=== PATIENT | female | born 1955 | race Caucasian/White ===

== ENCOUNTER 2016-06-28 18:38 | Emergency (ER) | payer OTHER ==
[2016-06-28 18:57] VITALS: BP 193/105
[2016-06-28 19:20] LABS: Hematocrit 28.3 % (37.0-47.0); Hemoglobin 9.5 gm/dL (12.5-16.0); Mean Corpuscular Hemoglobin 29.9 pg (27-31); Mean Corpuscular Hgb Conc 33.6 g/dl (32-36); Mean Platelet Volume 8.2 fl (6.0-9.5); Neutrophil # 6.3 K/mm3 (1.3-6.0); Neutrophil % 73.8 % (42-75.0); Platelet Count 116 K/mm3 (150-450); Red Blood Count 3.18 M/mm3 (4.2-5.4); Red Cell Distribution Width 16.2 % (11.5-14.0); White Blood Count 8.5 K/mm3 (4.0-10.5)
[2016-06-28 19:34] LABS: Albumin * 2.8 gm/dl (3.4-5.0); Anion Gap 11.6 mmol/L (6.8-13.8); BUN/Creatinine Ratio 22.8 (9.0-21.6); Bilirubin, Total 0.3 mg/dL (0.0-1.1); Calcium * 9.4 mg/dL (7.9-10.9); Carbon Dioxide 28.5 mmol/L (24-32.6); Potassium 4.1 mmol/L (3.4-4.6); Total Protein 7.2 gm/dL (6.2-8.2)
--- NOTE | 2016-06-28 19:35 | ERNOTE ---
Medical Problem HPI - General Chief Complaint: General Assessment Time Seen by Provider: 06/28/16 19:34 Source: patient, family Exam Limitations: no limitations - Immun/Allergies/Home Medications Immunizations: IMMUNIZATION HX Immunizations Up to Date Yes History of Influenza Vaccine No Hx Pneumococcal Vaccination No Allergies/Adverse Reactions: Allergies No Known Allergies Allergy (Verified 06/28/16 18:56) Home Medications: HOME MEDICATIONS Hydrochlorothiazide [Hydrodiuril] 25 mg PO DAILY 10/12/14 [Last Taken Unknown] Ferrous Sulfate [Iron] 325 mg PO BID 12/30/14 [Last Taken Unknown] Sennosides [Natural Vegetable Laxative] 17.2 mg PO BID 12/30/14 [Last Taken Unknown] Insulin Glargine,Hum.rec.anlog [Lantus] 20 units SC DAILY 02/27/15 [Last Taken Unknown] oxyCODONE HCL [Oxycodone] 5 mg PO PRN PRN 05/06/15 [Last Taken Unknown] Docusate Sodium [Colace] 100 mg PO DAILY 05/11/15 [Last Taken Unknown] Gabapentin [Neurontin] 300 mg PO TID 05/11/15 [Last Taken Unknown] Ondansetron HCl [Zofran] 8 mg PO TID PRN 05/11/15 [Last Taken Unknown] Prochlorperazine Maleate [Compazine] 10 mg PO QID PRN 05/11/15 [Last Taken Unknown] Insulin Lispro [Humalog] 25 unit SQ HS 10/28/15 [Last Taken Unknown] Lisinopril [Zestril] 20 mg PO DAILY 10/28/15 [Last Taken Unknown] - History of Present History Narrative: Feeling tired after 3rd of 6 sessions of chemo Timing: getting worse Severity: moderate Modifying Factors - (Improves): Present: rest Review of Systems - Review of Systems Constitutional: Present: See HPI, weakness, fatigue. Absent: fever, chills, diaphoresis EYE: Present: no symptoms reported ENT: Present: no symptoms reported Respiratory: Present: no symptoms reported Cardiology: Present: no symptoms reported Gastrointestinal/Abdominal: Present: no symptoms reported Genitourinary: Present: no symptoms reported Musculoskeletal: Present: no symptoms reported Skin: Present: no symptoms reported Neurological: Present: no symptoms reported Endocrine: Present: no symptoms reported Hematologic/Lymphatic: Present: no symptoms reported Psych: Present: no symptoms reported - Patient's Past Medical History Patient History - Medical: Diabetes Type 2 Patient History - Cardiac/Respiratory: Hypertension Patient History - Cancer: Endometrial, Chemotherapy history Patient History - Surgical Procedures: Appendectomy, Cataracts, Hysterectomy, Other Patient History - Other: None LMP (females 10-50): other - Family History Mother Family History - Medical: Family History - Cardiac/Respiratory: COPD Father Family History - Medical: History Unknown - Social History Living Situations: home Abuse History: No History of abuse Psych History: No pertinent hx Alcohol Use: none Drug Use: none - Immunizations Immunizations Up to Date: Yes Hx Pneumococcal Vaccination: No History of Influenza Vaccine: No Physical Exam - Physical Exam General Appearance: Present: wd/wn, alert, no apparent distress Eye Exam: Normal inspection: bilateral Ears, Nose, Throat: Present: normal ENT inspection Neck: Present: normal inspection Respiratory: Present: no respiratory distress, normal breath sounds, lungs clear Cardiovascular/Chest: Present: regular rate, rhythm, no murmur, normal peripheral pulses Extremity Exam: Present: normal inspection, no edema Neurological Exam: Present: alert, oriented, normal mood/affect, no motor/ sensory deficits Skin Exam: Present: normal color, warm/dry Lymphatic Exam: Present: no adenopathy ED Progress - Results and Orders Patient's Lab Results:: I have reviewed the patient's lab results. Results and Orders: Laboratory Tests 06/28/16 19:13 Sodium 142 Potassium 4.1 Chloride 106 Carbon Dioxide 28.5 Anion Gap 11.6 BUN 28 H Creatinine 1.23 Est GFR (Non-Af Amer) 47 L Random Glucose 159 H Calcium 9.4 Total Bilirubin 0.3 AST 19 ALT 26 Alkaline Phosphatase 76 Total Protein 7.2 Albumin 2.8 L - Vital Signs Patient's Vital Signs:: I have reviewed the patient's vital signs. Vital Signs: Vital Signs 06/28/16 18:53 Temperature 36.9 C Pulse Rate 91 Respiratory 16 Rate Blood Pressure 193/105 O2 Sat by Pulse 99 Oximetry - Progress/Reassessment Chief Complaint: General Assessment Progress:: Unchanged Departure - Departure Clinical Impression: Fatigue Qualifiers: Fatigue type: due to neoplasm Qualified Code(s): R53.0 - Neoplastic (malignant ) related fatigue Disposition: Home Follow Up Needed Condition: Fair Instructions: Fatigue Additional Instructions: Check with your oncologist about rechecking your blood counts before your next treatment or sooner if you continue to worsen Referrals: Roshan Dominguez MD [Primary Care Provider] -
--- OUTSIDE RECORDS SUMMARY | 2016-06-28 20:02 | XMS REPORT | Continuity of Care Document ---
:1955 Author Organization [facility] ([facility]) Address [address] [place] [address] Phone [phone] Care Team Providers Name Role Phone Roshan Dominguez Primary Care Provider [phone] Source Comments This disclosure is being made pursuant to the Care Everywhere program, applicable federal and state laws, and may not contain all informaitonavailable regarding this patient.[facility] ([facility]) Active Allergies and Adverse Reactions No Known Allergies Current Medications Prescription Sig. Disp. Refills Start End Status Date Date docusate 100 mg Take 1 Cap (100 60 Cap 3 11/24/19 Active capsule mg total) by 15 mouth 2 times daily sennosides 8.6 mg Take 1 Tab (8.6 30 Tab 3 11/24/19 Active tablet mg total) by 15 mouth 2 times daily metoPROLol succinate Take 1 Tab (25 mg 30 Tab 11/24/19 Active 25 mg XL tablet total) by mouth 15 daily SUPPLY BD ULTRA-FINE Inject 100 Each 12/12/19 Active PRATIK 32 x 4 MM pen subcutaneously 4 15 needle times daily SUPPLY FREESTYLE LITE Use to test blood 100 Each 12/22/19 Active test strips sugar 4 times 15 daily miconazole 2 % powder Apply topically 2 30 g 01/08/20 Active times daily 15 insulin glargine Inject 20 Units 15 mL 01/08/20 Active (LanTUS SOLOSTAR) 100 subcutaneously at 15 unit/mL (3 mL) bedtime injection pen sodium chloride 0.9 % Irrigate 500 mL 7000 mL 01/28/20 Active irrigation by irrigation 15 daily lidocaine-prilocaine Apply topically 30 g 11 03/03/20 Active 2.5-2.5 % cream once as needed 15 sodium hypochlorite As instructed 1419 mL 5 04/29/20 Active (DAKIN'S SOLUTION) 15 0.125 % topical solution gabapentin 300 mg Take 1 capsule 120 11 05/20/19 Active capsule (300 mg) at capsule 16 morning and at lunch. Take 2 capsules (600 mg) at bedtime. insulin aspart Inject 2-10 Units 30 mL 3 06/21/19 Active (NovoLOG FLEXPEN) 100 subcutaneously 3 16 unit/mL (3 mL) times daily injection pen before meals. hydrochlorothiazide Take 12.5 mg by 1 12/05/19 Active 12.5 mg tablet mouth daily. 16 metFORMIN 500 mg Take 500 mg by 1 12/07/19 Active tablet mouth daily. 16 buPROPion (WELLBUTRIN Take 1 tablet by 1 12/28/19 Active XL) 150 mg extended mouth daily. 16 release tablet 24 hour ferrous sulfate PO Take 65 mg by Active mouth daily. cholecalciferol Take 1,000 Units Active (VITAMIN D3) 1,000 by mouth daily. unit tablet PROchlorPERAZINE 10 mg Take 1 tablet (10 30 tablet 01/17/20 Active tablet mg total) by 16 mouth every 6 hours as needed. acetaminophen 325 mg Take 2 tablets 100 tablet 3 04/03/20 Active tablet (650 mg total) by 16 mouth every 4 hours as needed. dexamethasone 4 mg Take 2 tab (8 mg) 4 tablet 11 04/03/20 Active tablet by mouth daily on 16 Days 2 and 3 after chemo. lisinopril 40 mg Take 40 mg by Active tablet mouth daily. oxyCODONE 5 mg Take 1-2 tablets 90 tablet 0 05/30/19 Active immediate release (5-10 mg total) 17 tablet by mouth every 6 hours as needed. ondansetron 8 mg Take 1 tablet (8 12 tablet 05/30/19 Active tablet mg total) by 17 mouth every 8 hours as needed. ondansetron 8 mg Take 1 tablet (8 12 tablet 06/07/19 Active tablet mg total) by 17 mouth every 8 hours as needed for nausea/vomiting. PROchlorPERAZINE 10 mg Take 1 tablet (10 30 tablet 06/07/19 Active tablet mg total) by 17 mouth every 6 hours as needed for nausea/vomiting. Non-Adherent Bandage 5 Apply externally 10 Each 3 12/15/19 Discontinued X 9 " bndg 2 times daily 15 017 Adhesive Tape 2 X 10 4 Each by Apply 4 Each 1 01/08/20 Discontinued "-yard tape externally route 15 017 as needed Adhesive Tape (PAPER 1 application by 2 Each 11 03/03/20 Discontinued TAPE) 1 X 10 "-yard Apply externally 15 017 tape route 2 times daily Gauze Bandage (KERLIX) 1 application by 100 Each 11 03/03/20 Discontinued 4 1/2 X 147 " bndg Apply externally 15 017 route 2 times daily sodium hypochlorite Apply topically 2 1419 mL 5 03/03/20 Discontinued (DAKIN'S) 0.0125 % times daily 15 017 topical solution Gauze Bandage 4 X 4 " Pack twice per 100 Each 1 04/29/20 Discontinued spge day with Dakins 15 017 dampened gauze lisinopril 30 mg Take 30 mg by 1 12/17/19 Discontinued tablet mouth 2 times 16 017 daily. ondansetron 8 mg Take 1 tablet (8 12 tablet 11 01/17/20 Discontinued tablet mg total) by 16 017 mouth every 8 hours as needed. To start 3 days after chemotherapy if needed since Aloxi given as premed. Non-Adherent Bandage 5 1 pad by Apply 90 Each 1 02/07/20 Discontinued X 9 " bndg externally route 16 017 2 times daily as needed. oxyCODONE 5 mg Take 1-2 tablets 90 tablet 0 04/26/20 Discontinued immediate release (5-10 mg total) 16 017 tablet by mouth every 6 hours as needed. Active Problems Problem Noted Date Unexplained bleeding 04/21/2016 Chemotherapy management. Adriamycin started 01/17/2016 01/17/2016 SIRS (systemic inflammatory response syndrome) 01/06/2015 CKD (chronic kidney disease) stage 3, GFR 30-59 ml/min 01/06/2015 Obesity, morbid, BMI 40.0-49.9 11/19/2014 Endometrial cancer 11/18/2014 Anemia of chronic disease 11/13/2014 DM type 2 (diabetes mellitus, type 2), uncontrolled 12/05/2013 Essential hypertension 12/05/2013 Proliferative diabetic retinopathy, both eyes 06/17/2012 Diabetic macular edema of left eye 06/13/2012 Overview: Formatting of this note may be different from the original. Right Eye Left Eye Time To Recurrence: Time To Recurrence: Date VA (D cc) CMT Status Procedure VA (D cc) CMT Status Procedure Cmts 06/13/2012 20/80-1 20/60 Avastin 566956-0 07/31/2012 20/40 20/50 Avastin [id number] 10/23/2013 20/150 eccen sc Avastin 887854-7 30 sc Resolved Problems Problem Noted Date Resolved Date Fever and chills 03/02/2015 12/27/2015 Disruption of wound, unspecified 01/07/2015 01/17/2016 Thrombocytopenia 01/06/2015 12/27/2015 Acute blood loss anemia 11/19/2014 01/06/2015 LIN (acute kidney injury) 11/19/2014 01/06/2015 Hyperkalemia 11/19/2014 01/06/2015 Hyperphosphatemia 11/19/2014 01/06/2015 Dyspnea 11/13/2014 01/06/2015 Most Recent Encounters Date Type Specialty Providers Description 06/07/2016 [facility] Infusion Truong Lechuga, Dx: Endometrial Encounter Center cancer 06/07/2016 Office Visit Pathology Truong Lechuga, Chief Comp: Patient MD Reported Reason For Lab Services, Visit Pfp 06/07/2016 Pharmacy Visit 06/05/2016 Telephone [employer] Chata Lewis, Chief Comp: Other [employer] 05/30/2016 [facility] Truong Lechuga, Subj: Upcoming Appt Encounter Center Reminder 05/30/2016 Office Visit OBG Reproductive Truong Lechuga, Dx: Endometrial MD cancer (Primary Dx) Clinic, Chemist Intern Onc Advanced Practice Provider 05/29/2016 [facility] Radiology Truong Ocampo, Dx: Pre-procedure Encounter lab exam (Primary Dx) 05/22/2016 Office Visit Diabetes Services Default, Other Subj: Appointment Billg - Defo Rescheduled Mary Carmen Rivera ARNP 05/22/2016 Office Visit Diabetes Services Default, Other Subj: Upcoming Appt Billg - Defo Reminder Mary Carmen Rivera ARNP 05/22/2016 [facility]fusion Truong Lechuga, Subj: Upcoming Appt Encounter Center Reminder 05/22/2016 Office Visit OBG Reproductive Truong Lechuga Subj: Upcoming Appt MD Reminder Clinic, Chemist Intern Onc Advanced Practice Provider 05/22/2016 [facility] Radiology Subj: Upcoming Appt Encounter Reminder 05/17/2016 Telephone Auto Fleet Manager Raiza Leger, Chief Comp: Other [facility] 05/06/2016 Telephone Diabetes Services Kait Griffith Chief Comp: L, RN Follow-up 04/26/2016 [facility] Infusion Truong Lechuga, Dx: Endometrial Encounter Center cancer 04/26/2016 Office Visit OBG Reproductive Truong Lechuga, Dx: Endometrial MD cancer (Primary Dx) Clinic, Chemist Intern Onc Advanced Practice Provider 04/26/2016 Telephone Auto Fleet Manager Ame Gibson, [facility] 04/26/2016 Pharmacy Visit 04/21/2016 Office Visit Ophthalmology - Royce Fraser Subj: Upcoming Appt Specialty MD Zack Reminder 04/19/2016 Office Visit Pathology Truong Lechuga, Dx: Abnormal vaginal MD bleeding Lab Services, [facility] 04/19/2016 Office Visit OBG Reproductive Raulito Dx: Abnormal vaginal Bosquet, Preet, bleeding (Primary MD Dx) Truong Lechuga MD Clinic, Chemist Intern Onc Advanced Practice Provider 04/19/2016 Telephone Cancer Center Rosalie Rader, Chief Comp: RN Appointment Info 04/18/2016 Telephone Med Hematology and Rosa Sherman Chief Comp: Vaginal Oncology Bleeding 04/17/2016 Telephone Obstetrics Rolf, Chief Comp: Vaginal Caitlin Hernandes MD Bleeding 04/17/2016 Nurse Triage OB Reproductive Rolf, Chief Comp: Patient Caitlin Hernandes MD Concern 04/06/2016 Telephone Diabetes Services Kait Griffith Chief Comp: L, RN Follow-up 04/03/2016 [facility] Cancer Infusion Truong Lechuga, Dx: Endometrial Encounter Center cancer 04/03/2016 Office Visit OBG Reproductive Truong Lechuga, Dx: Endometrial MD cancer (Primary Dx) 04/03/2016 Pharmacy Visit 04/03/2016 Refill Cancer Center Kevin Gold Dx: Postoperative pain (Primary Dx) 04/03/2016 Orders/Notes Diabetes Services Mary Carmen Rivera ARNP 03/31/2016 Orders/Notes General Internal Mary Carmen Rivera ARNP 03/31/2016 Telephone Cancer Center Radha, Chief Comp: Results Marisabel Díaz 03/31/2016 Telephone Auto Fleet Manager Chata Lewis, Chief Comp: Other [employer] 03/30/2016 Telephone Cancer Center Radha Chief Comp: Other Marisabel Díaz Immunizations Name Dates Previously Given Next Due Influenza, unspecified 03/11/2014 Social History Tobacco Use Types Packs/Day Years Used Date Never Smoker Smokeless Tobacco: Never Used Tobacco Cessation:Counseling Given: Yes Comments: Alcohol Use Drinks/Week oz/Week Comments No Last Filed Vital Signs Vital Sign Reading Time Taken Blood Pressure 150/70 06/07/2016 3:48 PM GRAIN CLEANER Pulse 68 06/07/2016 3:48 PM GRAIN CLEANER Temperature 36.9 C (98.4 F) 06/07/2016 8:28 AM GRAIN CLEANER Respiratory Rate 16 06/07/2016 8:28 AM GRAIN CLEANER Height 1.6 m (5' 2.99") 06/07/2016 8:28 AM GRAIN CLEANER Weight 105.5 kg (232 lb 9.4 oz) 06/07/2016 8:28 AM GRAIN CLEANER Body Mass Index 41.21 06/07/2016 8:28 AM GRAIN CLEANER Oxygen Saturation 97% 06/07/2016 8:28 AM GRAIN CLEANER Plan of Care Date Type Specialty Providers Description 07/06/2016 Appointment OBG Reproductive Truong Lechuga MD [address] [place] [address] [phone] (Fax) Subj: Appointment Clinic, Chemist Intern Onc Advanced Practice Provider Scheduled 07/06/2016 Hospital Encounter Cancer Infusion Truong Lechuga, Chief Comp: [place] Patient Reported [address] [place] [address] [phone] (Fax) 07/27/2016 Appointment Diabetes Services Mary Carmen Rivera ARNP [address] [place] [address] [phone] (Fax) Subj: Appointment Default, Other Billg - Defo [address] [place] [address] [phone] (Fax) Rescheduled Health Maintenance Due Date Last Done Comments HCV Screening 1955 Hepatitis B Vaccine (1 of 3 - 1955 Primary Series) Tdap Vaccine 11/07/1966 DIABETIC: Microalbumin 11/07/1973 MMR Vaccine 11/07/1973 Td Vaccine 11/07/1973 Pneumococcal Vaccine (1 of 3 11/07/1974 - PCV13) Cervical Cancer Screening 11/07/1985 Mammogram 1995 Colonoscopy 11/07/2005 DIABETIC: Retinal Eye Exam 10/23/2014 10/23/2013, Additional history exists 10/23/2013, 06/13/2012 Zoster Vaccine 2015 Influenza Vaccine: Seasonal 11/29/2015 03/11/2014 (#1) DIABETIC: Hemoglobin A1C 08/31/2016 03/03/2016, Additional history exists 01/17/2016, 11/13/2014 DIABETIC: Foot Exam 03/28/2017 03/28/2016 DIABETIC: Cholesterol 03/31/2017 03/31/2016 Diabetic: Hdl 03/31/2017 03/31/2016 Diabetic: Ldl 03/31/2017 03/31/2016 DIABETIC: Triglycerides 03/31/2017 03/31/2016 Results from Last 3 Months DIFFERENTIAL (06/07/2016 8:35 AM)Only the most recent of4 resultswithin the time period is included. Component Value Range % Neutrophils-Auto Diff 78.0 % Neutrophils-Auto Diff 4970 2450-6679 /MM3 % Lymphocytes-Auto Diff 13.1 % Lymphocytes-Auto Diff 830(L) 875-3300 /MM3 % Monocytes-Auto Diff 5.7 % Monocytes-Auto Diff 360 130-860 /MM3 % Eosinophils-Auto Diff 1.6 % Eosinophils-Auto Diff 100 40-390 /MM3 % Basophils 0.5 % Basophils-Auto Diff 30 10-136 /MM3 % Immature Granulocytes-Auto Diff 1.1 % Immature Granulocytes-Auto Diff 70 /MM3 Specimen Whole Blood CBC (COMPLETE BLOOD COUNT) (06/07/2016 8:35 AM)Only the most recent of4 resultswithin the time period is included. Component Value Range WBC Count 6.4 3.7-10.5 K/MM3 RBC Count 3.34(L) 4.00-5.20 M/MM3 Hemoglobin 9.7(L) 11.9-15.5 g/dL Hematocrit 30(L) 35-47 % MCV (Mean Corpuscular Volume) 90 82-99 FL MCH (Mean Corpuscular Hemoglobin) 29 25-35 PG MCHC (Mean Corpuscular Hemoglobin Concentration) 32 32-36 % Platelet Count 132(L) 150-400 K/MM3 MPV (Mean Platelet Volume) 8.6(L) 9.4-12.3 FL RBC Dist Width-STD 52.4(H) 36.4-46.3 FL RBC Distrib Width 16.0(H) 9.0-14.5 % Nucleated RBC 0 /100 WBC Specimen Whole Blood CREATININE (06/07/2016 8:35 AM)Only the most recent of3 resultswithin the time period is included. Component Value Range Creatinine 1.2(H)Comment: 0.5-1.0 mg/dL Creatinine switched to enzymatic method on 09/06/2010.GFR equation switched to IDMS-traceable MDRD equation on 09/06/2010. Calculated GFR values are not valid in clinical settings where serum creatinine is changing. Calculated GFR 46(L) >60 mL/min/1.73 m2 Specimen Blood BILIRUBIN, TOTAL (06/07/2016 8:35 AM)Only the most recent of3 resultswithin the time period is included. Component Value Range Bilirubin Total 0.3 <=1.2 mg/dL Specimen Blood CBC WITH DIFFERENTIAL (06/07/2016 8:35 AM)Only the most recent of4 resultswithin the time period is included. Specimen Whole Blood Narrative The following orders were created for panel order CBC WITH DIFFERENTIAL. Procedure Abnormality Status --------- ------ CBC (COMPLETE BLOOD COUNT)[[id number]] AbnormalFinal result DIFFERENTIAL[[id number]] AbnormalFinal result Please view results for these tests on the individual orders. CREATININE-URINE, RANDOM (06/07/2016 8:29 AM) Component Value Range Creatinine, Urine, Random 85.4 mg/dL Specimen Urine PROTEIN-URINE,RANDOM (06/07/2016 8:29 AM) Component Value Range Total Protein, Urine, Random 212 mg/dL Protein/Creatinine Ratio 2.48(H)Comment:This is an appended report. <=0.20 These results have been appended to a previously final verified report. Specimen Urine BLOOD CELL MORPHOLOGY (05/30/2016 9:59 AM)Only the most recent of3 resultswithin the time period is included. Component Value Range Polychromasia 1+ Schistocytes 1+ Tear Drop 3+ Basophilic Stippling Present Specimen Whole Blood CT CHEST ABDOMEN PELVIS W CONTRAST ([id number], [id number]) (05/29/2016 3:38 PM) Impressions Impression: 1. Moderate to large volume ascites, increased in the interval. 2. Peritoneal carcinomatosis tumor burden appears similar. 3. Small segment 4 liver lesion is of indeterminant etiology, differential includes atypical appearance of resolving focal fat versus metastatic lesion; MRI could be considered for further characterization if it would alter clinical management. 4. Stable small lymph nodes along the right major fissure. Otherwise no pulmonary disease. 5. Stable partially calcified mass in the spinal canal at the level of T12. Narrative Procedure: CT CHEST ABDOMEN PELVIS W CONTRAST ([id number], [id number]) Clinical Indication: Recurrent endometrial cancer, s/p PETR, BSO, bilateral pelvic and paraaortic lymph node dissection on 11/18/2014. Currently on chemotherapy. Technique: CT exam of the chest, abdomen, and pelvis is performed following the uneventful administration of 122 cc Isovue-370 IV contrast. Comparison: Prior CT chest abdomen and pelvis from 03/27/2016 Findings: Neck base and axilla: No lymphadenopathy. Mediastinum and boone: No lymphadenopathy. Dqrnxr-p-Yxnq tip terminates in the superior vena cava. Heart and thoracic aorta: Small pericardial effusion, stable. Airway: Patent. Lungs and pleura: No suspicious nodules. Small lymph nodes along right major fissure, stable. Mild bibasilar atelectasis. Esophagus: Normal.. Chest wall soft tissues: Right chest wall Vwsvvw-y-Pqph. Liver: Focal lesion in segment 4 measuring 9 mm with HU-70 (image 2-87), under region of previously seen focal fat. Multiple small implants along the liver surface measuring up to 8 mm, stable (example in image 2-76). Bile ducts: Not dilated. Gallbladder: Not distended Pancreas: Normal Spleen: Tiny granulomas. Mild splenomegaly, measuring 15 cm in craniocaudal direction. Adrenal glands: Normal Kidneys: Stable left renal cyst measuring 9 mm. Ureters: Normal Bladder: Decompressed Aorta: Nonaneurysmal, scattered calcified atherosclerotic disease. Retroperitoneum: Stable subcentimeter lymph nodes. Peritoneum: Interval increase in moderate to large volume ascites. Multiple peritoneal implants which look similar to prior, (example in the left upper quadrant measuring 3.8 x 2.6 cm image 2-17 and in the right upper quadrant measuring 2.3 x 1.6 cm image 2-1 04) Mesentery: Stable subcentimeter mesenteric lymph nodes. Stomach: Not distended. Small bowel: Not distended. Colon: Not distended. Multiple serosal implants in the pelvis (image 2-67), similar Appendix: Surgically absent. Extraperitoneal pelvis: No lymphadenopathy. Uterus: Status post hysterectomy, similar appearance to the nodularity of the vaginal cuff. Ovaries: Surgically absent. Similar appearance to the nodularity of the terminus of the right gonadal vein. Abdominal wall: Postsurgical changes to the intra-abdominal wall. Bones: Intraspinal partially calcified lesion measuring 1.5 cm is stable. Procedure Note Tylor, Incoming Imaging Results - SunMay 29, 2016 5:20 PM GRAIN CLEANER Procedure: CT CHEST ABDOMEN PELVIS W CONTRAST ([id number], [id number]) Clinical Indication: Recurrent endometrial cancer, s/p PETR, BSO, bilateral pelvic and paraaortic lymph node dissection on 11/18/2014. Currently on chemotherapy. Technique: CT exam of the chest, abdomen, and pelvis is performed following the uneventful administration of 122 cc Isovue-370 IV contrast. Comparison: Prior CT chest abdomen and pelvis from 03/27/2016 Findings: Neck base and axilla: No lymphadenopathy. Mediastinum and boone: No lymphadenopathy. Pisqfk-s-Dmkh tip terminates in the superior vena cava. Heart and thoracic aorta: Small pericardial effusion, stable. Airway: Patent. Lungs and pleura: No suspicious nodules. Small lymph nodes along right major fissure, stable. Mild bibasilar atelectasis. Esophagus: Normal.. Chest wall soft tissues: Right chest wall Ccmylu-v-Cycb. Liver: Focal lesion in segment 4 measuring 9 mm with HU-70 (image 2-87), under region of previously seen focal fat. Multiple small implants along the liver surface measuring up to 8 mm, stable (example in image 2-76). Bile ducts: Not dilated. Gallbladder: Not distended Pancreas: Normal Spleen: Tiny granulomas. Mild splenomegaly, measuring 15 cm in craniocaudal direction. Adrenal glands: Normal Kidneys: Stable left renal cyst measuring 9 mm. Ureters: Normal Bladder: Decompressed Aorta: Nonaneurysmal, scattered calcified atherosclerotic disease. Retroperitoneum: Stable subcentimeter lymph nodes. Peritoneum: Interval increase in moderate to large volume ascites. Multiple peritoneal implants which look similar to prior, (example in the left upper quadrant measuring 3.8 x 2.6 cm image 2-17 and in the right upper quadrant measuring 2.3 x 1.6 cm image 2-1 04) Mesentery: Stable subcentimeter mesenteric lymph nodes. Stomach: Not distended. Small bowel: Not distended. Colon: Not distended. Multiple serosal implants in the pelvis (image 2-67), similar Appendix: Surgically absent. Extraperitoneal pelvis: No lymphadenopathy. Uterus: Status post hysterectomy, similar appearance to the nodularity of the vaginal cuff. Ovaries: Surgically absent. Similar appearance to the nodularity of the terminus of the right gonadal vein. Abdominal wall: Postsurgical changes to the intra-abdominal wall. Bones: Intraspinal partially calcified lesion measuring 1.5 cm is stable. IMPRESSION Impression: 1. Moderate to large volume ascites, increased in the interval. 2. Peritoneal carcinomatosis tumor burden appears similar. 3. Small segment 4 liver lesion is of indeterminant etiology, differential includes atypical appearance of resolving focal fat versus metastatic lesion; MRI could be considered for further characterization if it would alter clinical management. 4. Stable small lymph nodes along the right major fissure. Otherwise no pulmonary disease. 5. Stable partially calcified mass in the spinal canal at the level of T12. CREATININE, POINT OF CARE (05/29/2016 3:18 PM) Component Value Range POC CREATININE 1.2(A) 0.5-1.0 mg/dL POC CALCULATED GFR 46(A) 60 mL/min/1.73 m2 Specimen Blood MICROSCOPIC URINALYSIS (04/19/2016 12:01 PM) Component Value Range White Blood Cells, Urine <1 0-5 /HPF Red Blood Cells, Urine <1 0-2 /HPF Squamous Epithelial Cells, Urine 31(H) <=10 /LPF Mucous-Urine Rare None, Rare Specimen Urine URINALYSIS WITH REFLEX CULTURE (04/19/2016 12:01 PM) Component Value Range Color, Urine Yellow Straw, Pale Yellow, Yellow, Clear, None Clarity, Urine Slightly Cloudy(A) Clear pH, Urine 5.0 <9.0 Spec Pickett, Urine 1.015 1.000-1.030 Glucose, Urine Negative Negative Blood, Urine 1+(A) Negative Ketones, Urine Negative Negative Protein, Urine 2+(A) Negative Urobilinogen, Urine Normal Normal Bilirubin, Urine Negative Negative Leukocyte Esterase, Urine Negative Negative Nitrite, Urine Negative Negative Specimen Urine URINALYSIS WITH REFLEXED CULTURE AND MICROSCOPIC EXAM (04/19/2016 12:01 PM) Specimen Culture - Urine, Midstream clean catch Narrative The following orders were created for panel order URINALYSIS WITH REFLEXED CULTURE AND MICROSCOPIC EXAM. Procedure Abnormality Status --------- ------ URINALYSIS WITH REFLEX C...[[id number]]AbnormalFinal result MICROSCOPIC URINALYSIS[[id number]] Abnormal Final result URINE CULTURE, REFLEXED[[id number]] Please view results for these tests on the individual orders. EXTERNAL FRUCTOSAMINE (03/31/2016) Component Value Range Ext Fructosamine 195 190-270 umol/L EXTERNAL HIGH DENSITY LIPOPROTEIN (HDL) CHOLESTEROL (03/31/2016) Component Value Range Ext HDL Cholesterol 71(A) 40-60 MG/DL EXTERNAL LOW DENSITY CHOLESTEROL (LDL), MEASURED (03/31/2016) Component Value Range Ext LDL-Measured 46(A) 70-<130 MG/DL EXTERNAL TRIGLYCERIDES (03/31/2016) Component Value Range Ext Triglycerides 52 30-200 MG/DL EXTERNAL CHOLESTEROL (03/31/2016) Component Value Range Ext Cholesterol 127 0->200 MG/DL
== END 2016-06-28 20:33 | disposition home or self-care (01) ==
LOC: ER 18:38
DX: R53.0 Neoplastic (malignant) related fatigue (principal); C80.1 Malignant (primary) neoplasm, unspecified; C79.82 Secondary malignant neoplasm of genital organs

== ENCOUNTER 2016-08-03 20:48 | Emergency (ER) | payer OTHER ==
--- NOTE | 2016-08-03 21:44 | ERNOTE ---
Medical Problem HPI - General Chief Complaint: General Assessment Time Seen by Provider: 08/03/16 21:40 Source: patient - Immun/Allergies/Home Medications Immunizations: IMMUNIZATION HX Immunizations Up to Date Yes History of Influenza Vaccine No Hx Pneumococcal Vaccination No Allergies/Adverse Reactions: Allergies No Known Allergies Allergy (Verified 06/28/16 18:56) Home Medications: HOME MEDICATIONS Hydrochlorothiazide [Hydrodiuril] 25 mg PO DAILY 10/12/14 [Last Taken Unknown] Ferrous Sulfate [Iron] 325 mg PO BID 12/30/14 [Last Taken Unknown] Sennosides [Natural Vegetable Laxative] 17.2 mg PO BID 12/30/14 [Last Taken Unknown] Insulin Glargine,Hum.rec.anlog [Lantus] 20 units SC DAILY 02/27/15 [Last Taken Unknown] oxyCODONE HCL [Oxycodone] 5 mg PO PRN PRN 05/06/15 [Last Taken Unknown] Docusate Sodium [Colace] 100 mg PO DAILY 05/11/15 [Last Taken Unknown] Gabapentin [Neurontin] 300 mg PO TID 05/11/15 [Last Taken Unknown] Ondansetron HCl [Zofran] 8 mg PO TID PRN 05/11/15 [Last Taken Unknown] Prochlorperazine Maleate [Compazine] 10 mg PO QID PRN 05/11/15 [Last Taken Unknown] Insulin Lispro [Humalog] 25 unit SQ HS 10/28/15 [Last Taken Unknown] Lisinopril [Zestril] 20 mg PO DAILY 10/28/15 [Last Taken Unknown] - History of Present History Narrative: has pain and swelling of right foot but none in the calf. She is very worried about DVT. she has stage 4 endometrial cancer status post chemo today - Patient's Past Medical History Patient History - Medical: Diabetes Type 2 Patient History - Cardiac/Respiratory: Hypertension Patient History - Cancer: Endometrial, Chemotherapy history Patient History - Surgical Procedures: Appendectomy, Cataracts, Hysterectomy, Other Patient History - Other: None - Family History Mother Family History - Medical: Family History - Cardiac/Respiratory: COPD Father Family History - Medical: History Unknown - Social History Living Situations: spouse Abuse History: No History of abuse Psych History: No pertinent hx Smoking Status: Never smoker Alcohol Use: none Drug Use: none - Immunizations Immunizations Up to Date: Yes Hx Pneumococcal Vaccination: No History of Influenza Vaccine: No Physical Exam - Physical Exam General Appearance: Present: wd/wn, alert, no apparent distress, other - pt appears tired and she is obese Neck: Present: normal inspection, nontender Respiratory: Present: no respiratory distress, normal breath sounds, no accessory muscle use, chest nontender, lungs clear Cardiovascular/Chest: Present: regular rate, rhythm, no murmur, normal peripheral pulses Back Exam: Present: normal inspection Extremity Exam: Present: other - pt has no calf tenderness however her right leg is more swollen than her left. There is no redness or streaking noted on exam. ddimer is negative and this examiner will order a venous doppler of RLE. Neurological Exam: Present: alert, oriented, normal mood/affect, no motor/ sensory deficits, eeo officer II-XII nml as tested ED Progress - Results and Orders Patient's Lab Results:: I have reviewed the patient's lab results. - Vital Signs Patient's Vital Signs:: I have reviewed the patient's vital signs. Vital Signs: Vital Signs 08/03/16 21:01 Temperature 36.9 C Pulse Rate 108 H Respiratory 16 Rate Blood Pressure 188/100 O2 Sat by Pulse 97 Oximetry - Progress/Reassessment Chief Complaint: General Assessment Plan - Plan Plan: U/S is negative for DVT and CTA is negative for PE. pt can safely be discharged home Departure - Departure Clinical Impression: Feared condition not demonstrated Disposition: Home self-care Condition: Good Referrals: Roshan Dominguez MD [Primary Care Provider] -
--- OUTSIDE RECORDS SUMMARY | 2016-08-03 22:39 | XMS REPORT | Continuity of Care Document ---
:1955 Author Organization [facility] ([facility]) Address [address] [place] [address] Phone [phone] Care Team Providers Name Role Phone Roshan Dominguez Primary Care Provider [phone] Source Comments This disclosure is being made pursuant to the Care Everywhere program, applicable federal and state laws, and may not contain all informaitonavailable regarding this patient.[facility] ([facility]) Active Allergies and Adverse Reactions No Known Allergies Current Medications Prescription Sig. Disp. Refills Start End Status Date Date docusate 100 mg Take 1 Cap (100 60 Cap 3 11/24/19 Active capsule mg total) by 15 mouth 2 times daily SUPPLY BD ULTRA-FINE Inject 100 Each 12/12/19 Active PRATIK 32 x 4 MM pen subcutaneously 4 15 needle times daily SUPPLY FREESTYLE LITE Use to test blood 100 Each 12/22/19 Active test strips sugar 4 times 15 daily insulin glargine Inject 20 Units 15 mL 3 01/08/20 Active (LanTUS SOLOSTAR) 100 subcutaneously at 15 unit/mL (3 mL) bedtime injection pen lidocaine-prilocaine Apply topically 30 g 11 03/03/20 Active 2.5-2.5 % cream once as needed 15 gabapentin 300 mg Take 1 capsule 120 [...] 1 12/07/19 Active tablet mouth daily. 16 ferrous sulfate PO Take 65 mg by Active mouth 2 times daily. dexamethasone 4 mg Take 2 tab (8 mg) 4 tablet 11 04/03/20 Active tablet by mouth daily on 16 Days 2 and 3 after chemo. lisinopril 40 mg Take 40 mg by Active tablet mouth daily. ondansetron 8 mg Take 1 tablet (8 12 tablet 06/07/19 Active tablet mg total) by 17 mouth every 8 hours as needed for nausea/vomiting. PROchlorPERAZINE 10 mg Take 1 tablet (10 30 tablet 06/07/19 Active tablet mg total) by 17 mouth every 6 hours as needed for nausea/vomiting. multivitamin tablet Take 1 tablet by Active mouth daily. diltiaZEM 240 mg ER Take 240 mg by Active capsule mouth daily. oxyCODONE 5 mg Take 1-2 tablets 90 tablet 0 07/28/19 Active immediate release (5-10 mg total) 17 tablet by mouth every 6 hours as needed for pain. diphenhydrAMINE 25 mg Take 1-2 capsules 30 capsule 11 07/28/19 Active capsule (25-50 mg total) 17 by mouth at bedtime as needed. sennosides 8.6 mg Take 2 tablets 60 tablet 3 07/28/19 Active tablet (17.2 mg total) 17 by mouth at bedtime. Can increase to 2 tablets twice daily as needed. Non-Adherent Bandage 5 Apply externally 10 Each 3 07/28/19 Active X 9 " bndg 2 times daily 17 sennosides 8.6 mg Take 1 Tab (8.6 30 Tab 11/24/19 Discontinued tablet mg total) by 15 017 mouth 2 times daily metoPROLol succinate Take 1 Tab (25 mg 30 Tab 11/24/19 Discontinued 25 mg XL tablet total) by mouth 15 017 daily miconazole 2 % powder Apply topically 2 30 g 01/08/20 Discontinued times daily 15 017 sodium chloride 0.9 % Irrigate 500 mL 7000 mL 11 01/28/20 Discontinued irrigation by irrigation 15 017 daily sodium hypochlorite As instructed 1419 mL 5 04/29/20 Discontinued (DAKIN'S SOLUTION) 15 017 0.125 % topical solution buPROPion (WELLBUTRIN Take 1 tablet by 1 12/28/19 Discontinued XL) 150 mg extended mouth daily. 16 017 release tablet 24 hour cholecalciferol Take 1,000 Units Discontinued (VITAMIN D3) 1,000 by mouth daily. 017 unit tablet PROchlorPERAZINE 10 mg Take 1 tablet (10 30 tablet 11 01/17/20 Discontinued tablet mg total) by 16 017 mouth every 6 hours as needed. acetaminophen 325 mg Take 2 tablets 100 tablet 3 04/03/20 Discontinued tablet (650 mg total) by 16 017 mouth every 4 hours as needed. oxyCODONE 5 mg Take 1-2 tablets 90 tablet 0 05/30/19 Discontinued immediate release (5-10 mg total) 17 017 tablet by mouth every 6 hours as needed. ondansetron 8 mg Take 1 tablet (8 12 tablet 11 05/30/19 Discontinued tablet mg total) by 17 017 mouth every 8 hours as needed. DULoxetine 60 mg XR Take 60 mg by Discontinued capsule mouth daily. 017 Non-Adherent Bandage 5 Apply externally 10 Each 3 07/28/19 Discontinued X 9 " bndg 2 times daily 17 017 Active Problems Problem Noted Date Proteinuria 07/06/2016 Unexplained bleeding 04/21/2016 Chemotherapy management, encounter for Taxol and avastin started May 2016 SIRS (systemic inflammatory response syndrome) 01/06/2015 CKD (chronic kidney disease) stage 3, GFR 30-59 ml/min 01/06/2015 Obesity, morbid, BMI 40.0-49.9 11/19/2014 Endometrial cancer 11/18/2014 Anemia of chronic disease 11/13/2014 Type 2 diabetes mellitus with hyperglycemia, with long-term current use of 11/2013 insulin Essential hypertension 12/05/2013 Proliferative diabetic retinopathy, both eyes 06/17/2012 Diabetic macular edema of left eye 06/13/2012 Overview: Formatting of this note may be different from the original. Right Eye Left Eye Time To Recurrence: Time To Recurrence: Date VA (D cc) CMT Status Procedure VA (D cc) CMT Status Procedure Cmts 06/13/201280-1 20/60 Avastin 967266-7 07/31/2012 2040 20/50 Avastin [id number] 10/23/2013 20/150 eccen sc Avastin 688977-4 sc Resolved Problems Problem Noted Date Resolved Date Fever and chills 03/02/2015 12/27/2015 Disruption of wound, unspecified 01/07/2015 01/17/2016 Thrombocytopenia 01/06/2015 12/27/2015 Acute blood loss anemia 11/19/2014 01/06/2015 LIN (acute kidney injury) 11/19/2014 01/06/2015 Hyperkalemia 11/19/2014 01/06/2015 Hyperphosphatemia 11/19/2014 01/06/2015 Dyspnea 11/13/2014 01/06/2015 Most Recent Encounters Date Type Specialty Providers Description 08/03/2016 Hospital Encounter Cancer Infusion Truong Lechuga, Dx: Proteinuria Center (Primary Dx) 08/03/2016 Office Visit Diabetes Services Mary Carmen Rivera Dx: Type 2 diabetes MSTEPHANIE mellitus with Default, Other hyperglycemia, with Billg - Defo long-term current Kevin Bills use of insulin MD Magan (Primary Dx) 08/03/2016 Nurse Triage Patient Services Jahaira Harris, Chief Comp: Patient RN Concern 08/03/2016 Telephone Med Hematology and [place], Chief Comp: Clarify Oncology Dahiana English RN Medications/orders 08/01/2016 Telephone E Commerce Strategist Raiza Leger, Chief Comp: Other [facility] 07/27/2016 Office Visit Diabetes Services Mary Carmen Rivera Subj: Appointment STEPHANIE Johnson Rescheduled Default, Other Billg - Defo 07/27/2016 Hospital Encounter Cancer Infusion Raulito Lockwood, Subj: Upcoming Appt Center MD Preet Reminder 07/27/2016 Office Visit OBG Reproductive Raulito Lockwood Dx: Endometrial MD Preet cancer (Primary Dx) Clinic, [employer]iconductor Manufacturing Technician Onc Advanced Practice Provider 07/27/2016 Pharmacy Visit 07/25/2016 Telephone Cancer Center Oumou Huizar RN 07/10/2016 Telephone E Commerce Strategist Kvng Hua, Chief Comp: Other Ame Hartman [facility] 07/07/2016 Office Visit Diabetes Services Mary Carmen Rivera Subj: STEPHANIE Bartholomew Scheduled 07/06/2016 Hospital Encounter Cancer Infusion Truong Lechuga, Dx: Endometrial Center cancer 07/06/2016 Office Visit OBG Reproductive Truong Lechuga, Dx: Endometrial MD cancer (Primary Dx) Clinic, [employer]iconductor Manufacturing Technician Onc Advanced Practice Provider 07/06/2016 Telephone OBG Reproductive oRlf, Chief Comp: Advice Caitlin Hernandes MD Only 07/06/2016 Erroneous Cancer Center ValerykanwalCaity Chief Comp: Error Encounter 07/04/2016 Telephone Cancer Center Oumou Huizar RN 06/30/2016 Telephone E Commerce Strategist Chata Lewis, Chief Comp: Other CLAIM PROFESSIONAL 06/07/2016 Hospital Encounter Cancer Infusion Truong Lechuga, Dx: Endometrial Center cancer 06/07/2016 Office Visit Pathology Truong Lechuga, Chief Comp: Patient MD Reported Reason For Lab Services, Pfp Visit 06/07/2016 Pharmacy Visit 06/05/2016 Telephone E Commerce Strategist Chata Lewis, Chief Comp: Other CLAIM PROFESSIONAL 05/30/2016 Hospital Encounter Cancer Truong Felipe, Subj: Upcoming Appt Center Reminder 05/30/2016 Office Visit OBG Reproductive Truong Lechuga, Dx: Endometrial MD cancer (Primary Dx) Clinic, Semiconductor Manufacturing Technician Onc Advanced Practice Provider 05/29/2016 Hospital Encounter Radiology Truong Ocampo, Dx: Pre-procedure MD lab exam (Primary Dx) 05/22/2016 Office Visit Diabetes Services Default, Other Subj: Appointment Billg - Defo Rescheduled Mary Carmen Rivera ARNP 05/22/2016 Office Visit Diabetes Services Default, Other Subj: Upcoming Appt Billg - Defo Reminder Mary Carmen Rivera ARNP 05/22/2016 Hospital Encounter Cancer Truong Felipe, Subj: Upcoming Appt Center Reminder 05/22/2016 Office Visit OBG Reproductive Truong Lechuga, Subj: Upcoming Appt MD Reminder Clinic, Semiconductor Manufacturing Technician Onc Advanced Practice Provider 05/22/2016 Hospital Encounter Radiology Subj: Upcoming Appt Reminder 05/17/2016 Telephone E Commerce Strategist Raiza Leger, Chief Comp: Other CLAIM PROFESSIONAL 05/06/2016 Telephone Diabetes Services Kait Griffith Chief Comp: Monse RN Follow-up Immunizations Name Dates Previously Given Next Due Influenza, unspecified 03/11/2014 Social History Tobacco Use Types Packs/Day Years Used Date Never Smoker Smokeless Tobacco: Never Used Tobacco Cessation:Counseling Given: Yes Comments: Alcohol Use Drinks/Week oz/Week Comments No Last Filed Vital Signs Vital Sign Reading Time Taken Blood Pressure 151/74 08/03/2016 5:27 PM CDT Pulse 93 08/03/2016 5:27 PM CDT Temperature 36.5 C (97.7 F) 08/03/2016 11:40 AM CDT Respiratory Rate 16 08/03/2016 11:40 AM CDT Height 1.65 m (5' 4.96") 08/03/2016 11:40 AM CDT Weight 105.9 kg (233 lb 7.5 oz) 08/03/2016 11:40 AM CDT Body Mass Index 38.9 08/03/2016 11:40 AM CDT Oxygen Saturation 100% 08/03/2016 11:40 AM CDT Plan of Care Date Type Specialty Providers Description 08/17/2016 Appointment Renal and Richy, Subj: Appointment Hypertension MD Lloyd Scheduled 08/17/2016 Hospital Encounter Radiology Dx: Pre-procedure lab exam (Primary Dx) 08/18/2016 Appointment OBG Reproductive Truong Lechuga MD [address] [place] [address] [phone] (Fax) Subj: Appointment Clinic, Semiconductor Manufacturing Technician Onc Advanced Practice Provider Scheduled 08/18/2016 Appointment Cancer Infusion Truong Lechuga, Chief Comp: [place] Patient Reported [address] [place] [address] [phone] (Fax) 09/13/2016 Appointment Ophthalmology - Royce Fraser Subj: Appointment Wendy Dixon MD Scheduled [address] [place] [address] [phone] (Fax) 12/04/2016 Appointment Diabetes Services Kevin Bills MD [address] [place] [address] [phone] (Fax) Subj: Appointment Mary Carmen Rivera ARNP [address] [place] [address] [phone] (Fax) Scheduled Health Maintenance Due Date Last Done Comments HCV Screening 1955 Hepatitis B Vaccine (1 of 3 - 1955 Primary Series) Tdap Vaccine 11/07/1966 DIABETIC: Microalbumin 11/07/1973 MMR Vaccine 11/07/1973 Td Vaccine 11/07/1973 Pneumococcal Vaccine (1 of 3 11/07/1974 - PCV13) Cervical Cancer Screening 11/07/1985 Mammogram 1995 Colonoscopy 11/07/2005 DIABETIC: Retinal Eye Exam 10/23/2014 10/23/2013, Additional history exists 10/23/2013, 06/13/2012 Zoster Vaccine 2015 DIABETIC: Hemoglobin A1C 08/31/2016 03/03/2016, Additional history exists 01/17/2016, 11/13/2014 DIABETIC: Foot Exam 03/28/2017 03/28/2016 DIABETIC: Cholesterol 03/31/2017 03/31/2016 Diabetic: Hdl 03/31/2017 03/31/2016 Diabetic: Ldl 03/31/2017 03/31/2016 DIABETIC: Triglycerides 03/31/2017 03/31/2016 Influenza Vaccine: Seasonal Completed 03/11/2014 Results from Last 3 Months CREATININE-URINE, RANDOM (08/03/2016 11:53 AM)Only the most recent of4 resultswithin the time period is included. Component Value Range Creatinine, Urine, Random 124.1 mg/dL Specimen Urine PROTEIN-URINE,RANDOM (08/03/2016 11:53 AM)Only the most recent of4 resultswithin the time period is included. Component Value Range Total Protein, Urine, Random 535 mg/dL Protein/Creatinine Ratio 4.31(H) <=0.20 Specimen Urine DIFFERENTIAL (06/07/2016 8:35 AM)Only the most recent of2 resultswithin the time period is included. Component Value Range % Neutrophils-Auto Diff 78.0 % Neutrophils-Auto Diff 4970 5112-9988 /MM3 % Lymphocytes-Auto Diff 13.1 % Lymphocytes-Auto [...] COUNT) (06/07/2016 8:35 AM)Only the most recent of2 resultswithin the time period is included. Component [...] WBC Specimen Whole Blood CREATININE (06/07/2016 8:35 AM) Component Value Range Creatinine 1.2(H)Comment: 0.5-1.0 mg/dL Creatinine switched to enzymatic method on 09/06/2010.GFR equation switched to IDMS-traceable MDRD equation on 09/06/2010. Calculated GFR values are not valid in clinical settings where serum creatinine is changing. Calculated GFR 46(L) >60 mL/min/1.73 m2 Specimen Blood BILIRUBIN, TOTAL (06/07/2016 8:35 AM)Only the most recent of2 resultswithin the time period is included. Component Value Range Bilirubin Total 0.3 <=1.2 mg/dL Specimen Blood CBC WITH DIFFERENTIAL (06/07/2016 8:35 AM)Only the most recent of2 resultswithin the time period is included. Specimen Whole Blood Narrative The following orders were created for panel order CBC WITH DIFFERENTIAL. Procedure Abnormality Status --------- ------ CBC (COMPLETE BLOOD COUNT)[[id number]] AbnormalFinal result DIFFERENTIAL[[id number]] AbnormalFinal result Please view results for these tests on the individual orders. BLOOD CELL MORPHOLOGY (05/30/2016 9:59 AM) Component Value Range Polychromasia 1+ Schistocytes 1+ Tear Drop 3+ Basophilic Stippling Present Specimen Whole Blood CT CHEST ABDOMEN PELVIS W CONTRAST ([id number], [id number]) (05/29/2016 3:38 PM) Impressions Impression: 1. Moderate [...] Procedure: CT CHEST ABDOMEN PELVIS W CONTRAST (78052, 10792) Clinical Indication: Recurrent endometrial cancer, s/p PETR, BSO, bilateral pelvic and paraaortic lymph node dissection on 11/18/2014. Currently on chemotherapy. Technique: CT exam of the chest, abdomen, and pelvis is performed following the uneventful administration of 122 cc Isovue-370 IV contrast. Comparison: Prior CT chest abdomen and pelvis from 03/27/2016 Findings: Neck base and axilla: No lymphadenopathy. Mediastinum and boone: No lymphadenopathy. [id number]-v-[id number] tip terminates in the superior vena cava. Heart and thoracic aorta: Small pericardial effusion, stable. Airway: Patent. Lungs and pleura: No suspicious nodules. Small lymph nodes along right major fissure, stable. Mild bibasilar atelectasis. Esophagus: Normal.. Chest wall soft tissues: Right chest wall [id number]-c-Ajpb. Liver: Focal lesion in segment 4 measuring [...] Results - SunMay 29, 2016 5:20 PM ALLERGIST/MD Procedure: CT CHEST ABDOMEN PELVIS W CONTRAST ([id number], [id number]) Clinical Indication: Recurrent endometrial cancer, s/p PETR, BSO, bilateral pelvic and paraaortic lymph node dissection on 11/18/2014. Currently on chemotherapy. Technique: CT exam of the chest, abdomen, and pelvis is performed following the uneventful administration of 122 cc Isovue-370 IV contrast. Comparison: Prior CT chest abdomen and pelvis from 03/27/2016 Findings: Neck base and axilla: No lymphadenopathy. Mediastinum and boone: No lymphadenopathy. Xxxsan-b-Bexy tip terminates in the superior vena cava. Heart and thoracic aorta: Small pericardial effusion, stable. Airway: Patent. Lungs and pleura: No suspicious nodules. Small lymph nodes along right major fissure, stable. Mild bibasilar atelectasis. Esophagus: Normal.. Chest wall soft tissues: Right chest wall Mofbly-h-[id number]. Liver: Focal lesion in segment 4 measuring [...]
[2016-08-03 22:40] LABS: Prothrombin Time (Patient) 10.6 Seconds (9.4-11.4)
[2016-08-03 22:41] LABS: Hematocrit 28.5 % (37.0-47.0); Hemoglobin 9.4 gm/dL (12.5-16.0); Mean Cell Volume 94.7 fl (78-100); Mean Corpuscular Hemoglobin 31.2 pg (27-31); Mean Platelet Volume 9.7 fl (6.0-9.5); Neutrophil # 7.2 K/mm3 (1.3-6.0); Platelet Count 133 K/mm3 (150-450); Red Blood Count 3.01 M/mm3 (4.2-5.4); White Blood Count 8.4 K/mm3 (4.0-10.5)
[2016-08-03 22:42] LABS: INR 1.02 INR (0.90-1.10)
[2016-08-03 22:52] LABS: Albumin * 2.9 gm/dl (3.4-5.0); Anion Gap 16.9 mmol/L (6.8-13.8); Bilirubin, Total 0.3 mg/dL (0.0-1.1); Ca. Corrected For Albumin 9.1 mg/dL (8.4-10.2); Calcium * 8.5 mg/dL (7.9-10.9); Carbon Dioxide 22.7 mmol/L (24-32.6); Potassium 4.6 mmol/L (3.4-4.6); Total Protein 7.7 gm/dL (6.2-8.2)
[2016-08-04 01:25] VITALS: BP 160/86
== END 2016-08-04 02:02 | disposition home or self-care (01) ==
LOC: ER 20:48
DX: M79.671 Pain in right foot (principal); Z71.1 Person with feared health complaint in whom no diagnosis is made; R93.8 Abnormal findings on diagnostic imaging of other specified body structures; C54.1 Malignant neoplasm of endometrium; E11.9 Type 2 diabetes mellitus without complications; Z79.4 Long term (current) use of insulin; I10 Essential (primary) hypertension

== ENCOUNTER 2016-11-22 14:21 | Emergency (ER) | payer OTHER ==
[2016-11-22 14:45] VITALS: BP 150/87
[2016-11-22] MEDS ORDERED: NORMAL SALINE 1,000 ML IV ONE (15:07)
[2016-11-22] MEDS ORDERED: ONDANSETRON HCL/PF 2 MG/ML VIAL IV ONE (15:07)
[2016-11-22] MEDS ORDERED: ONDANSETRON HCL/PF 2 MG/ML VIAL ONE (15:10)
[2016-11-22 15:22] LABS: Albumin * 2.9 gm/dl (3.4-5.0); Anion Gap 10.5 mmol/L (6.8-13.8); BUN/Creatinine Ratio 17.3 (9.0-21.6); Bilirubin, Total 0.3 mg/dL (0.0-1.1); Ca. Corrected For Albumin 9.5 mg/dL (8.4-10.2); Calcium * 8.9 mg/dL (7.9-10.9); Carbon Dioxide 30.9 mmol/L (24-32.6); Potassium 4.4 mmol/L (3.4-4.6)
[2016-11-22] MEDS ORDERED: ORPHENADRINE CITRATE 30 MG/ML VIAL ONE (16:26)
--- NOTE | 2016-11-22 16:27 | ERNOTE ---
Medical Problem HPI - Narrative Date of Service: 11/22/16 - General Chief Complaint: Nausea/Vomiting Time Seen by Provider: 11/22/16 14:58 Source: patient Exam Limitations: no limitations - Immun/Allergies/Home Medications Immunizations: IMMUNIZATION HX Immunizations Up to Date Yes History of Influenza Vaccine No Hx Pneumococcal Vaccination No Allergies/Adverse Reactions: Allergies No Known Allergies Allergy (Verified 11/22/16 14:45) Home Medications: HOME MEDICATIONS Hydrochlorothiazide [Hydrodiuril] 12.5 mg PO DAILY 10/12/14 [Last Taken Unknown] Ferrous Sulfate [Iron] 325 mg PO BID 12/30/14 [Last Taken Unknown] Sennosides [Natural Vegetable Laxative] 17.2 mg PO BID 12/30/14 [Last Taken Unknown] Insulin Glargine,Hum.rec.anlog [Lantus] 30 units SC BID 02/27/15 [Last Taken Unknown] oxyCODONE HCL [Oxycodone] 5 mg PO Q6H PRN 05/06/15 [Last Taken Unknown] Docusate Sodium [Colace] 100 mg PO DAILY 05/11/15 [Last Taken Unknown] Diltiazem HCl [Cardizem Cd] 240 mg PO Q24H 11/17/16 [Last Taken Unknown] Valsartan 320 mg PO DAILY 11/17/16 [Last Taken Unknown] diphenhydrAMINE HCL [Benadryl] 25 mg PO HS PRN 11/17/16 [Last Taken Unknown] metFORMIN HCL [Glucophage] 500 mg PO BIDWM 11/17/16 [Last Taken Unknown] Cholecalciferol (Vitamin D3) [Vitamin D3] 5,000 unit PO DAILY 11/22/16 [Last Taken Unknown] Duloxetine HCl [Cymbalta] 60 mg PO DAILY 11/22/16 [Last Taken Unknown] Insulin Aspart [Novolog Flexpen] 11 unit SQ TID 11/22/16 [Last Taken Unknown] Multivit-Min/Iron Fum/Folic AC [Lzlbz-Gdepymt-Mdgxzcol Tablet] 1 each PO DAILY 11/22/16 [Last Taken Unknown] Ondansetron HCl [Zofran] 8 mg PO Q8H PRN 11/22/16 [Last Taken Unknown] - History of Present History Narrative: 61-year-old female presents to the emergency room for complaints of not feeling well. She is 2 weeks post chemotherapy and has had a little bit of nausea. Daughter states that her mother has not been eating well and she appears more ill than usual. Patient states that she feels fine Date (Duration): 11/22/16 Timing: intermittent Severity: mild Modifying Factors - (Improves): Present: rest Modifying Factors - (Worsens): Present: eating Review of Systems - Review of Systems Constitutional: Present: fatigue. Absent: fever EYE: Present: no symptoms reported ENT: Present: no symptoms reported Respiratory: Present: no symptoms reported Cardiology: Present: no symptoms reported Gastrointestinal/Abdominal: Present: See HPI, nausea Genitourinary: Present: no symptoms reported Musculoskeletal: Present: no symptoms reported Skin: Present: no symptoms reported Neurological: Present: no symptoms reported Endocrine: Present: no symptoms reported Hematologic/Lymphatic: Present: no symptoms reported Psych: Present: no symptoms reported All Other Systems: All systems neg except as marked - Patient's Past Medical History Patient History - Medical: Anemia, Diabetes Type 2, Renal Disease Patient History - Cardiac/Respiratory: Hypertension Patient History - Cancer: Endometrial, Chemotherapy history Patient History - Surgical Procedures: Appendectomy, Cancer Surgery, Cataracts, D & C, Hysterectomy Patient History - Other: None LMP (females 10-50): Menopausal - Family History Mother Family History - Medical: Family History - Cardiac/Respiratory: COPD Father Family History - Medical: History Unknown - Social History Living Situations: home Abuse History: No History of abuse Psych History: No pertinent hx Alcohol Use: none Drug Use: none - Immunizations Immunizations Up to Date: Yes Hx Pneumococcal Vaccination: No History of Influenza Vaccine: No Physical Exam - Physical Exam Narrative: Patient is pleasant. Mucous membranes are little dry. General Appearance: Present: wd/wn, alert, no apparent distress Head Exam: Present: normal inspection, no evidence of injury Eye Exam: Normal inspection: bilateral Ears, Nose, Throat: Present: normal ENT inspection, normal pharynx Neck: Present: normal inspection, nontender Respiratory: Present: no respiratory distress, normal breath sounds, no accessory muscle use, chest nontender, lungs clear Cardiovascular/Chest: Present: regular rate, rhythm, no murmur, normal peripheral pulses Gastrointestinal/Abdominal: Present: normal bowel sounds, nontender, nondistended, soft, no organomegaly Back Exam: Present: normal inspection, normal range of motion Extremity Exam: Present: normal inspection, no edema Neurological Exam: Present: alert, oriented, normal mood/affect, no motor/ sensory deficits Skin Exam: Present: warm/dry, pallor Lymphatic Exam: Present: no adenopathy ED Progress - Results and Orders Patient's Lab Results:: I have reviewed the patient's lab results. Results and Orders: no new findings - Vital Signs Patient's Vital Signs:: I have reviewed the patient's vital signs. Vital Signs: Vital Signs 11/22/16 11/22/16 11/22/16 14:42 15:23 16:19 Temperature 36.6 C Pulse Rate 80 77 84 Respiratory 16 17 16 Rate Blood Pressure 150/87 O2 Sat by Pulse 99 97 97 Oximetry - Progress/Reassessment Chief Complaint: Nausea/Vomiting Progress:: Improved Plan - Plan Plan: after zofran and some IV fluids patient states she feels better. Departure - Departure Clinical Impression: Dehydration Fatigue Qualifiers: Fatigue type: other Qualified Code(s): R53.83 - Other fatigue Disposition: Home Follow Up Needed Condition: Stable Instructions: Nausea, Adult, Dehydration, Adult, [id number], Rehydration, Adult Additional Instructions: Continue any previous home medications as directed. Follow up with her primary care provider with her scheduled appointment on November 28. Return to the emergency room if any symptoms return or persist. Referrals: Rohsan Dominguez MD [Primary Care Provider] -
== END 2016-11-22 16:32 | disposition home or self-care (01) ==
LOC: ER 14:21
DX: E86.0 Dehydration (principal); R53.83 Other fatigue; Z85.42 Personal history of malignant neoplasm of other parts of uterus; Z92.21 Personal history of antineoplastic chemotherapy; E11.9 Type 2 diabetes mellitus without complications; Z79.4 Long term (current) use of insulin; I10 Essential (primary) hypertension
CPT/HCPCS: 36415; 80053; 96361; 96374; 99284; J2405

== ENCOUNTER 2017-02-17 15:10 | Emergency (ER) | payer OTHER ==
[2017-02-17] MEDS ORDERED: NORMAL SALINE 1,000 ML IV ONE (15:57)
--- NOTE | 2017-02-17 15:58 | ERNOTE ---
Medical Problem HPI - Narrative Date of Service: 02/17/17 - General Chief Complaint: General Assessment Time Seen by Provider: 02/17/17 15:46 Source: patient, family, RN notes reviewed, old records Exam Limitations: no limitations - Immun/Allergies/Home Medications Immunizations: IMMUNIZATION HX Immunizations Up to Date Yes History of Influenza Vaccine No Hx Pneumococcal Vaccination No Allergies/Adverse Reactions: Allergies No Known Allergies Allergy (Verified 02/17/17 15:23) Home Medications: HOME MEDICATIONS Hydrochlorothiazide [Hydrodiuril] 12.5 mg PO DAILY 10/12/14 [Last Taken Unknown] Ferrous Sulfate [Iron] 325 mg PO BID 12/30/14 [Last Taken Unknown] Sennosides [Natural Vegetable Laxative] 17.2 mg PO BID 12/30/14 [Last Taken Unknown] Insulin Glargine,Hum.rec.anlog [Lantus] 30 units SC BID 02/27/15 [Last Taken Unknown] oxyCODONE HCL [Oxycodone] 5 mg PO Q6H PRN 05/06/15 [Last Taken Unknown] Docusate Sodium [Colace] 100 mg PO DAILY 05/11/15 [Last Taken Unknown] Diltiazem HCl [Cardizem Cd] 240 mg PO Q24H 11/17/16 [Last Taken Unknown] Valsartan 320 mg PO DAILY 11/17/16 [Last Taken Unknown] diphenhydrAMINE HCL [Benadryl] 25 mg PO HS PRN 11/17/16 [Last Taken Unknown] metFORMIN HCL [Glucophage] 500 mg PO BIDWM 11/17/16 [Last Taken Unknown] Cholecalciferol (Vitamin D3) [Vitamin D3] 5,000 unit PO DAILY 11/22/16 [Last Taken Unknown] Duloxetine HCl [Cymbalta] 60 mg PO DAILY 11/22/16 [Last Taken Unknown] Insulin Aspart [Novolog Flexpen] 11 unit SQ TID 11/22/16 [Last Taken Unknown] Multivit-Min/Iron Fum/Folic AC [Veesc-Hawvcpc-Fkhnodze Tablet] 1 each PO DAILY 11/22/16 [Last Taken Unknown] Ondansetron HCl [Zofran] 8 mg PO Q8H PRN 11/22/16 [Last Taken Unknown] - History of Present History Narrative: Yumiko is a 61 year old female brought to the ED by her family for elevated blood pressure readings. She first noticed this yesterday. She had chemotherapy a week ago. She then received a unit of blood 2 days in a row earlier this week. She has also had a lot of fatigue. She reports having similar symptoms in the past after her chemo, but they do not usually last this long and generally she feels better after getting blood. She initially denied any chest pain, but then her daughter reported that she complained of chest pain yesterday. The patient describes the pain as brief twinges. She has not experienced any chest pain today. Review of Systems - Review of Systems Constitutional: Present: fatigue, malaise, decreased activity level. Absent: fever, chills EYE: Present: no symptoms reported ENT: Absent: ear pain, nose congestion, sore throat Respiratory: Absent: shortness of breath, cough Cardiology: Absent: palpitations, syncope, edema Gastrointestinal/Abdominal: Present: nausea, eating less, drinking less. Absent : vomiting, diarrhea, abdominal pain Genitourinary: Absent: dysuria, hematuria, decreased urinary output Musculoskeletal: Absent: muscle pain, joint pain Skin: Absent: rash, lesions Neurological: Absent: headache, dizziness/light-headedness, weakness Endocrine: Present: no symptoms reported Hematologic/Lymphatic: Present: no symptoms reported Psych: Present: no symptoms reported - Patient's Past Medical History Patient History - Medical: Anemia, Diabetes Type 2, Renal Disease Patient History - Cardiac/Respiratory: Hypertension Patient History - Cancer: Endometrial, Chemotherapy history Patient History - Surgical Procedures: Appendectomy, Cancer Surgery, Cataracts, D & C, Hysterectomy Patient History - Other: None LMP (females 10-50): Menopausal - Family History Mother Family History - Medical: Family History - Cardiac/Respiratory: COPD Father Family History - Medical: History Unknown - Social History Living Situations: home Abuse History: No History of abuse Psych History: No pertinent hx Smoking Status: Never smoker Alcohol Use: none Drug Use: none - Immunizations Immunizations Up to Date: Yes Hx Pneumococcal Vaccination: No History of Influenza Vaccine: No Physical Exam - Physical Exam General Appearance: Present: wd/wn, alert, no apparent distress, obese Neck: Present: normal inspection, nontender, supple, full range of motion Respiratory: Present: no respiratory distress, normal breath sounds, no accessory muscle use, lungs clear Cardiovascular/Chest: Present: no murmur, normal peripheral pulses, tachycardia - Regular, 100-110 Gastrointestinal/Abdominal: Present: nontender, nondistended, soft Extremity Exam: Present: normal inspection, normal range of motion, no edema Neurological Exam: Present: alert, oriented, normal mood/affect, no motor/ sensory deficits Skin Exam: Present: warm/dry, pallor ED Progress - Results and Orders Patient's Lab Results:: I have reviewed the patient's lab results. - Vital Signs Patient's Vital Signs:: I have reviewed the patient's vital signs. Vital Signs: Vital Signs 02/17/17 15:14 Temperature 36.5 C Pulse Rate 112 H Respiratory 14 Rate Blood Pressure 145/90 O2 Sat by Pulse 98 Oximetry - EKG EKG: NSR EKG read: Reviewed by me - Progress/Reassessment Chief Complaint: General Assessment Progress:: Improved Departure Clinical Impression: Elevated blood pressure reading Fatigue Qualifiers: Fatigue type: due to neoplasm Qualified Code(s): R53.0 - Neoplastic (malignant ) related fatigue - Departure Disposition: Home Follow Up Needed Condition: Stable Additional Instructions: Continue your routine medications Return to the ER or follow up with your doctor if symptoms continue Referrals: Roshan Dominguez MD [Primary Care Provider] -
[2017-02-17 16:41] LABS: Hematocrit 33.2 % (37.0-47.0); Hemoglobin 11.4 gm/dL (12.5-16.0); Mean Cell Volume 89.2 fl (78-100); Mean Corpuscular Hemoglobin 30.6 pg (27-31); Mean Corpuscular Hgb Conc 34.3 g/dl (32-36); Mean Platelet Volume 9.4 fl (6.0-9.5); Neutrophil # 3.5 K/mm3 (1.3-6.0); Neutrophil % 74.9 % (42-75.0); Platelet Count 140 K/mm3 (150-450); Red Blood Count 3.72 M/mm3 (4.2-5.4); Red Cell Distribution Width 14.8 % (11.5-14.0); White Blood Count 4.7 K/mm3 (4.0-10.5)
[2017-02-17 16:59] LABS: Albumin * 2.5 gm/dl (3.4-5.0); Anion Gap 11.1 mmol/L (6.8-13.8); BUN/Creatinine Ratio 21.3 (9.0-21.6); Bilirubin, Total 0.2 mg/dL (0.0-1.1); Ca. Corrected For Albumin 9.6 mg/dL (8.4-10.2); Calcium * 8.7 mg/dL (7.9-10.9); Carbon Dioxide 28.9 mmol/L (24-32.6); Total Protein 6.6 gm/dL (6.2-8.2); Troponin I 0.021 ng/ml (0.00-0.10)
[2017-02-17 17:31] VITALS: BP 154/75
== END 2017-02-17 17:54 | disposition home or self-care (01) ==
LOC: ER 15:10
DX: I10 Essential (primary) hypertension (principal); R53.0 Neoplastic (malignant) related fatigue; E11.9 Type 2 diabetes mellitus without complications